=== PATIENT | female | born 2000 | race Caucasian/White ===

== ENCOUNTER 2023-11-28 00:46 | Emergency (ER) | payer SELFPAY ==
[2023-11-28] MEDS: Ondansetron 4 MG/2 ML SDV IVPUSH ONE (00:57)
== END 2023-11-28 03:37 | disposition home or self-care (01) ==
LOC: MW.ED 00:46
DX: F10.129 Alcohol abuse with intoxication, unspecified (principal); Z79.899 Other long term (current) drug therapy
CPT/HCPCS: 96374; 99284; J2405